=== PATIENT | male | born 1985 ===

== ENCOUNTER 2020-08-04 05:59 | Emergency (ER) | payer SELFPAY ==
[2020-08-04 06:55] LABS: Basophils % 0.5 % (0-1.3); Hematocrit 42.4 % (39.6-49.0); Lymphocytes % 25.2 % (15.3-44.8); MPV 9.5 fL (7.6-11.3); RBC Red Blood Cell Count 4.85 M/uL (4.33-5.43)
[2020-08-04] MEDS ORDERED: ONDANSETRON 4 MG/2 ML VIAL ONE (06:59)
[2020-08-04] MEDS ORDERED: MORPHINE 2 MG/ML SYR ONE (06:59)
[2020-08-04] MEDS ORDERED: NA CHLORIDE 0.9% 1,000 ML ONE (06:59)
[2020-08-04 07:13] LABS: ALT/SGPT 26 U/L (12-78); AST/SGOT 16 U/L (15-37); Albumin 3.6 g/dL (3.4-5.0); Alkaline Phosphatase 77 U/L (45-117); BUN Blood Urea Nitrogen 10 mg/dL (7-18); Bicarbonate 27 mmol/L (21-32); Bilirubin Direct < 0.1 mg/dL (0-0.2); Bilirubin Total 0.5 mg/dL (0.2-1.0); Glucose Level 103 mg/dL (74-106); Lipase 60 U/L (73-393); Potassium 3.6 mmol/L (3.5-5.1); Protein, Total 7.3 g/dL (6.4-8.2); Sodium Level 142 mmol/L (136-145)
[2020-08-04 08:03] LABS: Urine Blood NEGATIVE (NEG); Urine Glucose NEGATIVE (NEG); Urine Protein NEGATIVE (NEG); Urine Specific Gravity 1.025 (1.005-1.030)
--- NOTE | 2020-08-04 08:31 | ER ---
Nurse's Notes [facility] Name: Alejandro Sanchez Age: 35 yrs Sex: Male : 1985 Arrival Date: 08/04/2020 Time: 06:04 Bed 8 Private MD: Diagnosis: Abdominal tenderness;Functional dyspepsia Presentation: 08/04 06:24 Chief complaint: Patient states: RUQ pain progressively getting worse last 4 days. Coronavirus screen: Client denies travel out of the [place] in the last 14 days. At this time, the client does not indicate any symptoms associated with coronavirus-19. Ebola Screen: Patient negative for fever greater than or equal to 101.5 degrees Fahrenheit, and additional compatible Ebola Virus Disease symptoms Patient denies exposure to infectious person. Initial Sepsis Screen: Does the patient meet any 2 criteria? No. Patient's initial sepsis screen is negative. Does the patient have a suspected source of infection? Yes: Acute abdominal pain. Risk Assessment: Do you want to hurt yourself or someone else? Patient reports no desire to harm self or others. Onset of symptoms was August 04, 2020. 06:24 Method Of Arrival: Ambulatory 06:24 Acuity: CLIFFORD 3 Historical: - Allergies: 06:25 No Known Allergies; - Home Meds: 06:25 None [Active]; - PMHx: 06:25 None; - PSHx: 06:25 None; - Immunization history:: Adult Immunizations up to date. - Social history:: Smoking status: Patient uses alcohol, occasionally. Patient/guardian denies using. - Family history:: not pertinent. Screenin:25 Abuse screen: Denies threats or abuse. Denies injuries from another. Nutritional screening: No deficits noted. Tuberculosis screening: No symptoms or risk factors identified. Fall Risk None identified. Assessment: 06:26 General: Appears in no apparent distress. Behavior is calm, cooperative, appropriate for age. Pain: Complains of pain in right upper quadrant Pain radiates to back Pain currently is 7 out of 10 on a pain scale. Quality of pain is described as sharp, Pain began 2-3 days ago. Neuro: Level of Consciousness is awake, alert, obeys commands, Oriented to person, place, time, situation, Appropriate for age. Cardiovascular: Heart tones S1 S2. Respiratory: Airway is patent Respiratory effort is even, unlabored, Respiratory pattern is regular, symmetrical, Breath sounds are clear bilaterally. GI: Abdomen is flat, non-distended, Bowel sounds present X 4 quads. Abd is soft Abdomen is tender to palpation in right upper quadrant Reports upper abdominal pain, nausea. : No signs and/or symptoms were reported regarding the genitourinary system. EENT: No signs and/or symptoms were reported regarding the EENT system. Derm: Skin is intact, is healthy with good turgor, Skin is pink, warm \T\ dry. normal. Musculoskeletal: Circulation, motion, and sensation intact. 07:00 Reassessment: RECD REPORT FROM AROLDO GRIFFIN. 35YO HM P/W ABDOMINAL PAIN. U/S PENDING. bp 07:43 Reassessment: U/S COMPLETED. General: Appears in no apparent distress. Behavior is bp calm, cooperative, appropriate for age. Pain: Denies pain. Neuro: Level of Consciousness is awake, alert, obeys commands, Oriented to person, place, time, situation, Appropriate for age. Cardiovascular: Capillary refill < 3 seconds Patient's skin is warm and dry. Respiratory: Airway is patent Respiratory effort is even, unlabored, Respiratory pattern is regular, symmetrical. GI: Abdomen is flat, non-distended, Bowel sounds present X 4 quads. Abd is soft X 4 quads Reports upper abdominal pain. : No signs and/or symptoms were reported regarding the genitourinary system. EENT: No deficits noted. Derm: No deficits noted. Musculoskeletal: No deficits noted. 08:42 Reassessment: PT D/C HOME AMBULATORY, DX WITH FUNCTIONAL DYSPEPSIA. bp Vital Signs: 06:24 BP 123 / 79; Pulse 58; Resp 18; Temp 98; Pulse Ox 99% ; Weight 95.25 kg; Height 5 ft. 6 wh in. (167.64 cm); Pain 7/10; 07:43 BP 118 / 79; Pulse 68; Resp 16; Pulse Ox 100% ; bp 08:42 BP 115 / 73; Pulse 65; Resp 16; Temp 98; Pulse Ox 100% ; bp 06:24 Body Mass Index 33.89 (95.25 kg, 167.64 cm) ED Course: 06:04 Patient arrived in ED. bp1 06:18 Yarelis Bynum is Primary Nurse. 06:19 Tacos Georges MD is Attending Physician. [facility] 06:25 Triage completed. 06:27 Arm band placed on right wrist. 06:27 Patient has correct armband on for positive identification. Bed in low position. Call light in reach. Side rails up X 1. Pulse ox on. NIBP on. 06:40 Inserted saline lock: 20 gauge in right antecubital area, using aseptic technique. rv Blood collected. 06:40 Initial lab(s) drawn, by co, sent to lab. rv 07:05 Primary Nurse role handed off by Yarelis Bynum bp 07:05 Anthony Sanders, RN is Primary Nurse. bp 07:11 US Abdomen Limited In Process Unspecified. EDMS 08:42 No provider procedures requiring assistance completed. IV discontinued, intact, bp bleeding controlled, No redness/swelling at site. Pressure dressing applied. Administered Medications: 06:49 Drug: NS 0.9% 1000 ml Route: IV; Rate: 1 bolus; Site: right antecubital; rv 08:45 Follow up: IV Status: Completed infusion; IV Intake: 1000ml bp 06:50 Drug: morphine 2 mg {Note: RASS 0.} Route: IVP; Site: right antecubital; rv 08:45 Follow up: Response: Pain is decreased bp 06:50 Drug: Zofran (Ondansetron) 4 mg Route: IVP; Site: right antecubital; rv 08:45 Follow up: Response: Nausea is decreased bp Intake: 08:45 IV: 1000ml; Total: 1000ml. bp Outcome: 08:30 Discharge ordered by . [facility] 08:44 Discharged to home ambulatory. bp 08:44 Condition: stable 08:44 Discharge instructions given to patient, Instructed on discharge instructions, follow up and referral plans. medication usage, Demonstrated understanding of instructions, follow-up care, medications, Prescriptions given X 3. 08:45 Patient left the ED. bp Signatures: Dispatcher [employer] EDMS Tacos Georges MD MD cha Habalo, Winsy Anthony Sanders, RN RN bp Amor Ornelas RN RN rv Samantha Valdivia bp1
--- NOTE | 2020-08-04 08:31 | EDPHYS ---
Physician Documentation [facility] Name: Alejandro Sanchez Age: 35 yrs Sex: Male : 1985 Arrival Date: 08/04/2020 Time: 06:04 Bed 8 Private MD: PAUL Physician Tacos Georges HPI: 08/04 06:37 This 35 yrs old Male presents to ER via Ambulatory with complaints of nichole Abdominal Pain, Nausea. 06:37 This 35 yrs old Male presents to ER via Ambulatory with complaints of nichole Abdominal Pain, Nausea. 06:37 The patient presents to the emergency department with nausea, abdominal pain, of the nichole right upper quadrant, described as constant, and radiates to the back. Onset: The symptoms/episode began/occurred 2 day(s) ago. Possible causes: unknown. The symptoms are aggravated by nothing. The symptoms are alleviated by nothing. Associated signs and symptoms: The patient has no apparent associated signs or symptoms. Severity of symptoms: At their worst the symptoms were mild moderate in the emergency department the symptoms are unchanged. The patient has not experienced similar symptoms in the past. Historical: - Allergies: 06:25 No Known Allergies; wh - Home Meds: 06:25 None [Active]; - PMHx: 06:25 None; - PSHx: 06:25 None; - Immunization history:: Adult Immunizations up to date. - Social history:: Smoking status: Patient uses alcohol, occasionally. Patient/guardian denies using. - Family history:: not pertinent. ROS: 06:37 Constitutional: Negative for fever, chills, and weight loss, Eyes: Negative for injury, nichole pain, redness, and discharge, ENT: Negative for injury, pain, and discharge, Neck: Negative for injury, pain, and swelling, Cardiovascular: Negative for chest pain, palpitations, and edema, Respiratory: Negative for shortness of breath, cough, wheezing, and pleuritic chest pain, Back: Negative for injury and pain, : Negative for injury, bleeding, discharge, and swelling, MS/Extremity: Negative for injury and deformity, Skin: Negative for injury, rash, and discoloration, Neuro: Negative for headache, weakness, numbness, tingling, and seizure, Psych: Negative for depression, anxiety, suicide ideation, homicidal ideation, and hallucinations, Allergy/Immunology: Negative for hives, rash, and allergies, Endocrine: Negative for neck swelling, polydipsia, polyuria, polyphagia, and marked weight changes, Hematologic/Lymphatic: Negative for swollen nodes, abnormal bleeding, and unusual bruising. 06:37 Abdomen/GI: Positive for abdominal pain, of the right upper quadrant. Exam: 06:37 Constitutional: This is a well developed, well nourished patient who is awake, alert, nichole and in no acute distress. Head/Face: Normocephalic, atraumatic. Eyes: Pupils equal round and reactive to light, extra-ocular motions intact. Lids and lashes normal. Conjunctiva and sclera are non-icteric and not injected. Cornea within normal limits. Periorbital areas with no swelling, redness, or edema. ENT: Nares patent. No nasal discharge, no septal abnormalities noted. Tympanic membranes are normal and external auditory canals are clear. Oropharynx with no redness, swelling, or masses, exudates, or evidence of obstruction, uvula midline. Mucous membranes moist. Neck: Trachea midline, no thyromegaly or masses palpated, and no cervical lymphadenopathy. Supple, full range of motion without nuchal rigidity, or vertebral point tenderness. No Meningismus. Chest/axilla: Normal chest wall appearance and motion. Nontender with no deformity. No lesions are appreciated. Cardiovascular: Regular rate and rhythm with a normal S1 and S2. No gallops, murmurs, or rubs. Normal PMI, no JVD. No pulse deficits. Respiratory: Lungs have equal breath sounds bilaterally, clear to auscultation and percussion. No rales, rhonchi or wheezes noted. No increased work of breathing, no retractions or nasal flaring. Back: No spinal tenderness. No costovertebral tenderness. Full range of motion. Male : Normal genitalia with no discharge or lesions. Skin: Warm, dry with normal turgor. Normal color with no rashes, no lesions, and no evidence of cellulitis. MS/ Extremity: Pulses equal, no cyanosis. Neurovascular intact. Full, normal range of motion. Neuro: Awake and alert, GCS 15, oriented to person, place, time, and situation. Cranial nerves II-XII grossly intact. Motor strength 5/5 in all extremities. Sensory grossly intact. Cerebellar exam normal. Normal gait. Psych: Awake, alert, with orientation to person, place and time. Behavior, mood, and affect are within normal limits. 06:37 Abdomen/GI: Inspection: abdomen appears normal, Bowel sounds: normal, Palpation: mild abdominal tenderness, in the right upper quadrant, Liver: no appreciated palpable abnormalities, Hernia: not appreciated. Vital Signs: 06:24 BP 123 / 79; Pulse 58; Resp 18; Temp 98; Pulse Ox 99% ; Weight 95.25 kg; Height 5 ft. 6 wh in. (167.64 cm); Pain 7/10; 07:43 BP 118 / 79; Pulse 68; Resp 16; Pulse Ox 100% ; bp 08:42 BP 115 / 73; Pulse 65; Resp 16; Temp 98; Pulse Ox 100% ; bp 06:24 Body Mass Index 33.89 (95.25 kg, 167.64 cm) wh MDM: 06:19 Patient medically screened. [facility] 06:39 Differential diagnosis: Nonspecific abd pain, gastritis, cholecystitis, pancreatitis, nichole diverticulitis, viral gastroenteritis, gastroenteritis. Data reviewed: vital signs, nurses notes, lab test result(s), radiologic studies, doppler. Data interpreted: disability insurance claim examiner: not applicable for this patient encounter. rate is 98 beats/min, rhythm is regular, Pulse oximetry: on room air is 99 %. Test interpretation: by ED physician or midlevel provider: ECG, plain radiologic studies. 08/04 06:35 Order name: Basic Metabolic Panel; Complete Time: 08:18 [facility] 08/04 06:35 Order name: CBC with Diff; Complete Time: 08:18 [facility] 08/04 06:35 Order name: Hepatic Function; Complete Time: 08:18 [facility] 08/04 06:35 Order name: Lipase; Complete Time: 08:18 [facility] 08/04 06:35 Order name: Urine Culture [facility] 08/04 06:35 Order name: US Abdomen Limited [facility] 08/04 06:55 Order name: Urine Dipstick--Ancillary (enter results); Complete Time: 08:18 08/04 06:33 Order name: IV Saline Lock; Complete Time: 06:44 08/04 06:33 Order name: Labs collected and sent; Complete Time: 06:44 08/04 06:35 Order name: IV Saline Lock; Complete Time: 06:44 [facility] 08/04 06:35 Order name: Labs collected and sent; Complete Time: 06:44 [facility] 08/04 06:35 Order name: Urine Dipstick-Ancillary (obtain specimen); Complete Time: 06:44 [facility] Administered Medications: 06:49 Drug: NS 0.9% 1000 ml Route: IV; Rate: 1 bolus; Site: right antecubital; rv 08:45 Follow up: IV Status: Completed infusion; IV Intake: 1000ml bp 06:50 Drug: morphine 2 mg {Note: RASS 0.} Route: IVP; Site: right antecubital; rv 08:45 Follow up: Response: Pain is decreased bp 06:50 Drug: Zofran (Ondansetron) 4 mg Route: IVP; Site: right antecubital; rv 08:45 Follow up: Response: Nausea is decreased bp Disposition: 08/04/20 08:30 Discharged to Home. Impression: Abdominal tenderness, Functional dyspepsia. - Condition is Stable. - Discharge Instructions: Abdominal Pain, Adult, Nausea and Vomiting, Adult, Abdominal Pain, Adult, [id number]. - Prescriptions for Bentyl 20 mg Oral Tablet - take 1 tablet by ORAL route every 6 hours As needed; 20 tablet. Pepcid 20 mg Oral Tablet - take 1 tablet by ORAL route every 12 hours for 10 days; 20 tablet. Zofran 4 mg Oral Tablet - take 1 tablet by ORAL route every 12 hours As needed; 20 tablet. - Medication Reconciliation Form, Thank You Letter, Antibiotic Education, Prescription Opioid Use, Work release form form. - Follow up: Private Physician; When: 2 - 3 days; Reason: Recheck today's complaints, Continuance of care, Re-evaluation by your physician. - Problem is new. - Symptoms have improved. Signatures: Dispatcher [employer] EDTacos Jennings MD MD cha Habalo, Winsy wh Peltier, Brian RN RN Amor Stephen, RN RN rv Corrections: (The following items were deleted from the chart) 08:45 08:30 08/04/2020 08:30 Discharged to Home. Impression: Abdominal tenderness; Functional bp dyspepsia. Condition is Stable. Forms are Medication Reconciliation Form, Thank You Letter, Antibiotic Education, Prescription Opioid Use. Follow up: Private Physician; When: 2 - 3 days; Reason: Recheck today's complaints, Continuance of care, Re-evaluation by your physician. Problem is new. Symptoms have improved. nichole
--- NOTE | 2020-08-04 08:44 | RAD REPORT ---
EXAM DESCRIPTION: US - Abdomen Exam Limited - 08/04/2020 7:10 am CLINICAL HISTORY: ABD PAIN Preliminary findings provided at the time of the study. COMPARISON: No comparisons FINDINGS: No gallstones, sludge or other abnormalities within the gallbladder lumen. There is no wal l thickening or pericholecystic fluid. Echogenic bowel wall abutting the gallbladder mimics [place] es. No common duct stone or biliary tree dilatation identified. IMPRESSION: Normal gallbladder and biliary tree ultrasound.
[2020-08-04 09:45] VITALS: TEMP 98
[2020-08-04 09:48] VITALS: O2SAT 100
[2020-08-04 09:50] VITALS: BP 115/73
== END 2020-08-04 08:45 | disposition home or self-care (01) ==
LOC: ER 05:59
DX: K30 Functional dyspepsia (principal)
CPT/HCPCS: 36415; 76705; 80048; 80076; 81003; 83690; 85025; 87086; 87088; 96361; 96374; 96375; 99284; J2270; J2405; J7030